=== PATIENT | female | born 1970 | race African-American/Black ===

== ENCOUNTER 2017-09-01 13:28 | Day surgery (SDC) | payer OTHER ==
[2017-08-31 14:40] VITALS: BMI 38.0
--- NOTE | 2017-09-01 14:40 | PROC ---
Endoscopy Procedure Endoscopy procedure completed. Please see scanned procedure report.
[2017-09-01] MEDS ORDERED: PROPOFOL 20 ML ONE ×3 (14:53)
[2017-09-01] MEDS ORDERED: LIDOCAINE HCL/PF 2% SDV 5ML VIAL ONE (14:54)
[2017-09-01] MEDS ORDERED: LIDOCAINE HCL 2% (20ML MULTI-DOSE VIAL) NR ONE (14:56)
[2017-09-01] MEDS ORDERED: LIDOCAINE VISCOUS 2% ORAL/TOP 20 ML UNIT-DOSE CUP ONE (15:18)
[2017-09-01 16:11] VITALS: TEMP 98
[2017-09-01 16:29] VITALS: BP 112/70; PULSE 78
--- NOTE | 2017-09-06 14:05 | PATH ---
Surgical Pathology Report Patient Name: MOSES BEAUCHAMP [facility]. Rec. #: [id number] /Age/Gender: 1970 (Age: 46) / F Account: [id number] Location: [facility]-ENDOSCOPY Taken: 09/01/2017 Received: 09/05/2017 Reported: 09/06/2017 Physicians: Michael Rosenthal M.D. Specimen(s) Received A: BX 2ND PORTION DUODENUM B: BX ANTRUM AND BODY C: BX GASTRIC JUNCTION D: BX MID ESOPHAGUS Clinical History Dysphagia, GERD, gastritis Postoperative diagnosis: Esophagitis Final Diagnosis A. DUODENUM, SECOND PORTION, BIOPSY: SMALL BOWEL MUCOSA WITHOUT SIGNIFICANT PATHOLOGIC FINDINGS. B. STOMACH, ANTRUM AND BODY, BIOPSY: GASTRIC ANTRAL AND BODY MUCOSA WITH MILD CHRONIC GASTRITIS. IMMUNOHISTOCHEMICAL STAIN FOR H. PYLORI IS NEGATIVE. C. GASTROESOPHAGEAL (GE) JUNCTION, BIOPSY: SQUAMOUS MUCOSA WITH MILD BASAL CELL HYPERPLASIA CONSISTENT WITH CHANGES OF MILD REFLUX ESOPHAGITIS. NO COLUMNAR COMPONENT, INTESTINAL METAPLASIA, OR DYSPLASIA IDENTIFIED. D. MID ESOPHAGUS, BIOPSY: SQUAMOUS MUCOSA WITHOUT SIGNIFICANT PATHOLOGIC FINDINGS. Electronically Signed Jojo Rosales M.D. Gross Description A. Received in formalin, labeled "biopsy second portion of duodenum" are 3 salazar, irregular portions of soft tissue averaging 0.2 cm. in greatest dimension. The specimens are submitted in toto in one cassette. B. Received in formalin, labeled "biopsy antrum and body" are 2 salazar, irregular portions of soft tissue averaging 0.2 cm. in greatest dimension. The specimens are submitted in toto in one cassette. C. Received in formalin, labeled "biopsy GE junction" are 4 salazar, irregular portions of soft tissue averaging 0.1 cm. in greatest dimension. The specimens are submitted in toto in one cassette. D. Received in formalin, labeled "biopsy midesophagus" are 2 salazar, irregular portions of soft tissue averaging 0.2 cm. in greatest dimension. The specimens are submitted in toto in one cassette. 09/05/201709/05/2017
== END 2017-09-01 16:30 | disposition home or self-care (01) ==
LOC: JASU-ENDO 13:28
PROVIDERS: ATTEND Internal Medicine Gastroenterology
PROC: 0DB68ZX Excision of Stomach, Via Natural or Artificial Opening Endoscopic, Diagnostic (ICD-10-PCS; 2017-09-01)
PROC: 0DB48ZX Excision of Esophagogastric Junction, Via Natural or Artificial Opening Endoscopic, Diagnostic (ICD-10-PCS; 2017-09-01)
PROC: 0DB98ZX Excision of Duodenum, Via Natural or Artificial Opening Endoscopic, Diagnostic (ICD-10-PCS; principal; 2017-09-01 13:00)
DX: K20.9 Esophagitis, unspecified (principal)
CPT/HCPCS: 88305-TC; 88342-TC

== ENCOUNTER 2020-12-09 16:51 | Emergency (ER) | payer OTHER ==
[2020-12-09 17:15] VITALS: BP 144/87; PULSE 91; TEMP 98.5; BMI 32.3
== END 2020-12-09 20:44 | disposition home or self-care (01) ==
LOC: JERFT 16:51
DX: S92.331A Displaced fracture of third metatarsal bone, right foot, initial encounter for closed fracture (principal); W01.0XXA Fall on same level from slipping, tripping and stumbling without subsequent striking against object, initial encounter
CPT/HCPCS: 73610-TC-RT-FY; 73630-TC-RT-FY; 99283-25

== ENCOUNTER 2024-04-30 06:32 | Day surgery (SDC) | payer OTHER ==
[2024-04-08 15:29] VITALS: BMI 33.2
[2024-04-30] MEDS ORDERED: BUPIVACAINE HCL/PF 0.25% (2.5MG/ML) 10 ML VIAL ONE (07:34)
[2024-04-30] MEDS ORDERED: EPINEPHrine 1:1,000 1,000 MCG/ML ML ONE (07:34)
[2024-04-30] MEDS ORDERED: MIDAZOLAM HCL 2 MG/2 ML SINGLE DOSE VIAL ONE ×2 (07:50→08:22)
[2024-04-30] MEDS ORDERED: PROPOFOL 20 ML ONE (07:50)
[2024-04-30] MEDS ORDERED: ACETAMINOPHEN INJECTION 100 ML ONE (08:22)
[2024-04-30] MEDS ORDERED: ONDANSETRON 4 MG/2 ML VIAL IVPUSH PRN (09:05)
[2024-04-30] MEDS ORDERED: oxyCODONE HCL 5 MG TABLET PO PRN (09:05)
[2024-04-30] MEDS ORDERED: LACTATED RINGERS SOLUTION 1,000 ML IV SCH (09:15)
[2024-04-30] MEDS ORDERED: DEXAMETHASONE SOD PHOSPHATE 4 MG/1 ML VIAL ONE (09:18)
[2024-04-30] MEDS ORDERED: ceFAZolin SODIUM 1 GM VIAL ONE (09:18)
[2024-04-30] MEDS ORDERED: KETOROLAC TROMETHAMINE 30 MG/1 ML VIAL ONE (09:49)
[2024-04-30] MEDS ORDERED: FENTANYL CITRATE/PF 50 MCG/ML VIAL ONE (10:29)
[2024-04-30] MEDS: oxyCODONE HCL 5 MG TABLET PO ONE (11:20)
[2024-04-30 11:22] VITALS: RESP 18; TEMP 97.9
[2024-04-30 12:16] VITALS: BP 130/68; PULSE 76
== END 2024-04-30 12:40 | disposition home or self-care (01) ==
LOC: FASU 06:32
PROVIDERS: ATTEND Orthopaedic Surgery Sports Medicine
PROC: 0SBC4ZZ Excision of Right Knee Joint, Percutaneous Endoscopic Approach (ICD-10-PCS; 2024-04-30)
PROC: 0SBC4ZZ Excision of Right Knee Joint, Percutaneous Endoscopic Approach (ICD-10-PCS; principal; 2024-04-30 09:35)
DX: S83.241A Other tear of medial meniscus, current injury, right knee, initial encounter (principal); S83.281A Other tear of lateral meniscus, current injury, right knee, initial encounter; M94.261 Chondromalacia, right knee; M65.98 Unspecified synovitis and tenosynovitis, other site; X58.XXXA Exposure to other specified factors, initial encounter; Y93.9 Activity, unspecified; Y92.9 Unspecified place or not applicable
CPT/HCPCS: 82962; 94760; J0131